=== PATIENT | female | born 1990 | race Hispanic/Latino ===

== ENCOUNTER 2017-02-05 11:04 | Inpatient (IN) | payer BC, OTHER ==
[2017-02-05 11:17] VITALS: BMI 31.0
[2017-02-05] MEDS ORDERED: Sodium Chloride 0.9% 1,000 ML IV STA ×2 (12:15→14:11)
--- NOTE | 2017-02-05 12:25 | ED PDOC ---
HPI: Skin/Bite Injury Time Seen by Provider: 02/05/17 12:05 Chief Complaint (Nursing): Abnormal Skin Integrity Chief Complaint (Provider): skin infection History Per: Patient History/Exam Limitations: no limitations Onset/Duration Of Symptoms: Days (1x week) Current Symptoms Are (Timing): Still Present Location Of Injury: Anterior: Abdomen (mid abdominal area, bug bite) Quality Of Symptoms: Painful Severity: Moderate Additional Complaint(s): 26 year old female with no pertinent medical history presents to the ED with complaints of infection to skin of mid abdominal area. She reports that she was bit by an insect 1 week ago and it got infected. Patient was seen by PMD at [place] and was given bactrim and keflex which has taken for about 1 week but infection has worsened, prompting ED visit toda. She has also been taking tramadol that was prescribed for back pain with no relief. She reports having significant pain to the area and denies having any draining, nausea, vomiting, or fevers. She rates pain as 8/10. PMD: [facility] Past Medical History Reviewed: Historical Data, Nursing Documentation, Vital Signs Vital Signs: Last Vital Signs Temp 98.7 F 02/05/17 17:34 Pulse 90 02/05/17 17:34 Resp 18 02/05/17 17:34 BP 130/80 02/05/17 17:34 Pulse Ox 98 02/05/17 17:27 - Medical History PMH: Anxiety - Surgical History Other surgeries: left ankle surgery 7x years ago. - Family History Family History: States: No Known Family Hx - Living Arrangements Living Arrangements: With Family - Social History Current smoker - smoking cessation education provided: Yes (E cigarette) Alcohol: Social Drugs: Cannabis - Home Medications Home Medications: Ambulatory Orders Medication Instructions Recorded Cephalexin [cephalexin] 500 mg PO TID 02/05/17 Venlafaxine [Effexor XR] 150 mg PO DAILY 02/05/17 - Allergies Allergies/Adverse Reactions: Allergies Allergy/AdvReac Type Severity Reaction Status Date / Time No Known Allergies Allergy Unverified 02/05/17 11:50 Review of Systems ROS Statement: Except As Marked, All Systems Reviewed And Found Negative Constitutional: Negative for: Fever, Chills Gastrointestinal: Positive for: Abdominal Pain (mid abdominal pain due to infection). Negative for: Nausea, Vomiting Skin: Positive for: Other (skin infection mid abdominal area) Physical Exam - Reviewed Nursing Documentation Reviewed: Yes Vital Signs Reviewed: Yes - Physical Exam Appears: Positive for: Well, Non-toxic, In Acute Distress Head Exam: Positive for: ATRAUMATIC, NORMAL INSPECTION, NORMOCEPHALIC Skin: Positive for: Normal Color, Warm, Dry Cardiovascular/Chest: Positive for: Regular Rate, Rhythm Respiratory: Positive for: Normal Breath Sounds. Negative for: Respiratory Distress Gastrointestinal/Abdominal: Positive for: Soft, Other (diffuse cellulitis to mid abdominal area with 2 hyperpigmented central pustular lesions. Significant tenderness to palpation, minimal drainage and bleeding) Extremity: Positive for: Normal ROM. Negative for: Pedal Edema Neurologic/Psych: Positive for: Alert, Oriented (3x) - Laboratory Results Result Diagrams: 02/05/17 12:50 02/05/17 12:50 Urine POC: Negative - ECG O2 Sat by Pulse Oximetry: 96 (RA) Pulse Ox Interpretation: Normal - Other Rad CT abd and pelvis with IV contrast X-Ray: Read By Radiologist X-Ray Interpretation: see below Medical Decision Making Medical Decision Makin:05 Initial impression: 26 year old female with cellulitis. Initial plan: * VBG * CT abd and pelvis with IV contrast only * CMP * CBC * morphine 4mg IVP * IV NS 1,000ml IV 1,000mls/hr * Vancomycin inj 1gm sodium chloride .9% 250ml IVPB * zofran inj 4mg IV * blood culture * reevaluation 14:10 pm: patient states there is no improvement in pain after morphine dose was given, Toradol 30 IV ordered. 15:42 CT: IMPRESSION: Cellulitis/panniculitis. This appears to be uncomplicated without evidence of drainable component, sinus tract or fistulous communication with the peritoneal cavity. Additional benign and/or incidental findings described above. 15:55: PMD is chula John d/w Arnel Moore who will admit patient. Patient is aware of and agrees with admission. As per VINITA Moore, Dr. Lugo's group contacted for surgery consult. I spoke with Dr. Estevez who states to have surgical instrument repair specialist see patient. Resident was instructed to call Dr. Estevez after he sees patient. Scribe Attestation: Documented by Marycarmen Villarreal, acting as a scribe for Delmy Gardner PA-C. Provider Scribe Attestation: All medical record entries made by the Scribe were at my direction and personally dictated by me. I have reviewed the chart and agree that the record accurately reflects my personal performance of the history, physical exam, medical decision making, and the department course for this patient. I have also personally directed, reviewed, and agree with the discharge instructions and disposition. Disposition - Clinical Impression Clinical Impression: Abdominal wall cellulitis - Patient ED Disposition Is Patient to be Admitted: Yes - Disposition Disposition Time: 16:10 Condition: FAIR - Pt Status Changed To: Hospital Disposition Of: Observation - POA Present On Arrival: None Results - Lab Results Lab Results: 02/05/17 02/05/17 02/05/17 12:50 12:50 12:49 WBC 10.1 RBC 4.48 Hgb 13.5 Hct 40.6 MCV 90.7 MCH 30.0 MCHC 33.1 RDW 13.4 Plt Count 286 MPV 8.8 Neut % (Auto) 70.1 Lymph % (Auto) 21.9 [place] % (Auto) 6.4 Eos % (Auto) 1.2 Baso % (Auto) 0.4 Neut # 7.1 H Lymph # 2.2 [place] # 0.6 Eos # 0.1 Baso # 0.0 pO2 20 L VBG pH 7.32 VBG pCO2 55 VBG HCO3 23.9 VBG Total CO2 30.0 H VBG O2 Sat (Calc) 36.8 L VBG Base Excess 1.1 VBG Potassium 4.4 A-a O2 Difference 61.0 Sodium 141 136.0 Chloride 105 105.0 Glucose 79 Lactate 1.1 FiO2 21.0 Crit Value Called To Patric nieves Crit Value Called By 15 Crit Value Read Back Y Blood Gas Notified Time 1300 Potassium 4.3 Carbon Dioxide 27 Anion Gap 12 BUN 13 Creatinine 0.7 Est GFR ( Amer) > 60 Est GFR (Non-Af Amer) > 60 Random Glucose 81 Calcium 9.4 Total Bilirubin 0.3 AST 27 ALT 32 Alkaline Phosphatase 68 Total Protein 7.4 Albumin 4.2 Globulin 3.2 Albumin/Globulin Ratio 1.3 Venous Blood Potassium 4.4
[2017-02-05 12:53] LABS: VENOUS BLOOD GAS BASE EXCESS 1.1 mmol/L (0.0-2.0); VENOUS BLOOD GAS PCO2 55 mmHg (40-60); VENOUS BLOOD GAS PO2 20 mm/Hg (30-55); VENOUS BLOOD PH 7.32 (7.32-7.43)
[2017-02-05 13:13] LABS: BASO % 0.4 % (0.0-2.0); EOS # 0.1 K/uL (0.0-0.7); EOS % 1.2 % (0.0-4.0); HEMOGLOBIN 13.5 g/dL (12.0-16.0); LYMPH # 2.2 K/uL (1.0-4.3); LYMPH % 21.9 % (20.0-40.0); MEAN CELL VOLUME 90.7 fl (81.0-99.0); MEAN CORPUSCULAR HGB CONC 33.1 g/dL (33.0-37.0); MEAN PLATELET VOLUME 8.8 fl (7.2-11.7); MONO # 0.6 K/uL (0.0-0.8); MONO % 6.4 % (0.0-10.0); NEUT # 7.1 K/uL (1.8-7.0); NEUT % 70.1 % (50.0-75.0); RBC 4.48 Mil/uL (3.80-5.20); RED CELL DISTRIBUTION WIDTH 13.4 % (11.5-14.5); WHITE BLOOD COUNT 10.1 K/uL (4.8-10.8)
[2017-02-05] MEDS ORDERED: Vancomycin 1 g Inj ONE (13:15)
[2017-02-05] MEDS ORDERED: Piperacillin/Tazobact 3.375 gm Inj IVPB ONE (13:23)
[2017-02-05 13:25] LABS: ALB/GLOB RATIO 1.3 (1.0-2.1); ALBUMIN 4.2 g/dL (3.5-5.0); ALT/SGPT 32 U/L (9-52); AST/SGOT 27 U/L (14-36); BLOOD UREA NITROGEN 13 mg/dl (7-17); CALCIUM 9.4 mg/dL (8.4-10.2); GFR AFRICAN-AMERICAN > 60; GFR NON-AFRICAN AMERICAN > 60
[2017-02-05] MEDS ORDERED: Piperacillin/Tazobact 3.375 GM in Sodium Chloride 0.9% 100 ML IVPB STA (13:26)
[2017-02-05] MEDS ORDERED: Sodium Chloride 0.9% 50 ML IV ONE (14:57)
[2017-02-05] MEDS ORDERED: Iohexol 300 100 ML IJ ONE (14:57)
--- NOTE | 2017-02-05 15:44 | CT ---
PROCEDURE: CT Abdomen and Pelvis with contrast HISTORY: assess abdominal wall abscess COMPARISON: None. TECHNIQUE: Contrast dose: 95 cc Omnipaque 300 Radiation dose: Total exam DLP = 1083.69 mGy-cm. This CT exam was performed using one or more of the following dose reduction techniques: Automated exposure control, adjustment of the mA and/or kV according to patient size, and/or use of iterative reconstruction technique. FINDINGS: LOWER THORAX: Unremarkable. LIVER: Sub cm cyst dome of the liver right hepatic lobe. Hepatic steatosis. No focal masses. No intrahepatic bile duct dilatation or perihepatic ascites. GALLBLADDER AND BILE DUCTS: Unremarkable. PANCREAS: Unremarkable. No gross lesion or ductal dilatation. SPLEEN: Unremarkable. ADRENALS: Unremarkable. No mass. KIDNEYS AND URETERS: Unremarkable. No hydronephrosis. No solid mass. VASCULATURE: Unremarkable. No aortic aneurysm. BOWEL: Unremarkable. No obstruction. No gross mural thickening. APPENDIX: Normal appendix. PERITONEUM: Unremarkable. No free fluid. No free air. LYMPH NODES: Unremarkable. No enlarged lymph nodes. BLADDER: Unremarkable. REPRODUCTIVE: Ninety UD identified in what appears to be satisfactory position. BONES: No acute fracture. OTHER FINDINGS: Evidence of lower abdominal and pelvic wall cellulitis/ radiculitis. No drainable collection. No sinus tract or fistulous communication with the peritoneal cavity. IMPRESSION: Cellulitis/panniculitis. This appears to be uncomplicated without evidence of drainable component, sinus tract or fistulous communication with the peritoneal cavity. Additional benign and/or incidental findings described above.
[2017-02-05] MEDS ORDERED: Oxycodone/Acetaminophen 5/325 mg Tab PO PRN (15:53)
[2017-02-05] MEDS ORDERED: Piperacillin/Tazobact 3.375 GM in Sodium Chloride 0.9% 100 ML IVPB SCH ×2 (16:00→20:00)
--- NOTE | 2017-02-05 18:33 | CP.PCM.CON ---
<Taras Dumont - Last Filed: 02/05/17 18:26> History of Present Illness - History of Present Illness History of Present Illness: General Sx: Dr Dominguez Re: Abd wall lesion Pt is a 26F with no significant PMH who presents with 1 week history of progressively worsening abdominal wall cellulitis. Pt states she first noticed the lesion last thursday (6 days prior) as a small red inflammed pimple in the suprapubic area. It progressively worsened within the first 24 hours and pt went to PMD who put her on Bactrim and Keflex. Pt took abx for 5 days and lesion continued to worsen, now with black center and surrounding erythema and inflammation. Pt denies any fever, chills, nausea or vomiting. Pain is limited to the visibly affected area. Review of Systems - Review of Systems All systems: reviewed and no additional remarkable complaints except (as per hpi ) Past Patient History - Past Social History Alcohol: Social Drugs: Cannabis - CARDIAC Hx Cardiac Disorders: No - PULMONARY Hx Respiratory Disorders: No - NEUROLOGICAL Hx Neurological Disorder: No - ENDOCRINE/METABOLIC Hx Endocrine Disorders: No - GASTROINTESTINAL Hx Gastrointestinal Disorders: No - GENITOURINARY/GYNECOLOGICAL Hx Genitourinary Disorders: No - PSYCHIATRIC Hx Anxiety: Yes - SURGICAL HISTORY Other/Comment: Left ankle surgery - ANESTHESIA Hx Anesthesia: Yes Meds Allergies/Adverse Reactions: Allergies Allergy/AdvReac Type Severity Reaction Status Date / Time No Known Allergies Allergy Unverified 02/05/17 11:50 - Medications Medications: Current Medications Sodium Chloride (Sodium Chloride 0.9%) 1,000 mls @ 125 mls/hr IV .Q8H STA Stop: 02/05/17 22:10 Last Admin: 02/05/17 14:15 Dose: 125 mls/hr Vancomycin HCl 1 gm/ Sodium (Chloride) 250 mls @ 166.667 mls/hr IVPB Q12 [facility] Piperacillin Sod/Tazobactam (Sod 3.375 gm/ Sodium Chloride) 100 mls @ 100 mls/ hr IVPB Q6 [facility]THA Ketorolac Tromethamine (Toradol) 30 mg IVP Q6 PRN PRN Reason: pain 2-5 Oxycodone/Acetaminophen (Percocet 5/325 Mg Tab) 1 tab PO Q4 PRN PRN Reason: pain 6-10 Stop: 02/08/17 15:54 Venlafaxine HCl (Effexor Xr) 150 mg PO DAILY [facility] Physical Exam - Constitutional Appears: Non-toxic, No Acute Distress - Head Exam Head Exam: NORMOCEPHALIC - Respiratory Exam Respiratory Exam: absent: Accessory Muscle Use, Respiratory Distress - Cardiovascular Exam Cardiovascular Exam: REGULAR RHYTHM - GI/Abdominal Exam GI & Abdominal Exam: Guarding, Soft, Tenderness (at area of cellulitis). absent : Distended, Firm, Hernia, Mass, Rebound Additional comments: 3x3 and 2x3 area of necrotic ulceration with 8x12 cm surrounding erythema, extremely TTP - Extremities Exam Extremities exam: Negative for: pedal edema - Neurological Exam Neurological exam: Alert, Oriented x3 - Psychiatric Exam Psychiatric exam: Normal Affect, Normal Mood Results - Vital Signs Recent Vital Signs: Last Vital Signs Temp 98.7 F 02/05/17 17:34 Pulse 90 02/05/17 17:34 Resp 18 02/05/17 17:34 BP 130/80 02/05/17 17:34 Pulse Ox 96 02/05/17 17:41 - Labs Result Diagrams: 02/05/17 12:50 02/05/17 12:50 Assessment & Plan - Assessment and Plan (Free Text) Assessment: 26F with abdominal wall cellulitis; necrotic base Plan: NPO @ [place] IV Abx Fluids Possible OR tomorrow pending attending eval d/w Dr Estevez/Alberto Dumont, PGY2 - Date & Time Date: 02/05/17 Time: 18:47 <Ney Estevez - Last Filed: 02/06/17 10:14> History of Present Illness - History of Present Illness History of Present Illness: Patient was seen and examined at the bedside. Agree with resident's note above. Meds - Medications Medications: Current Medications Hydromorphone HCl (Dilaudid) 1 mg IVP Q3 PRN PRN Reason: Pain, moderate (4-7) Last Admin: 02/06/17 07:49 Dose: 1 mg Vancomycin HCl 1 gm/ Sodium (Chloride) 250 mls @ 166.667 mls/hr IVPB Q12 [facility] Last Admin: 02/06/17 08:43 Dose: 166.667 mls/hr Sodium Chloride (Sodium Chloride 0.9%) 1,000 mls @ 125 mls/hr IV .Q8H [facility]A Stop: 02/06/17 18:49 Last Admin: 02/06/17 04:38 Dose: Not Given Piperacillin Sod/Tazobactam (Sod 3.375 gm/ Sodium Chloride) 100 mls @ 100 mls/ hr IVPB 0500,1100,1700,2300 [facility] Last Admin: 02/06/17 04:18 Dose: 100 mls/hr Venlafaxine HCl (Effexor Xr) 150 mg PO DAILY [facility] Last Admin: 02/06/17 08:44 Dose: Not Given Results - Vital Signs Recent Vital Signs: Last Vital Signs Temp 97.8 F 02/06/17 08:00 Pulse 60 02/06/17 08:00 Resp 18 02/06/17 08:00 BP 119/80 02/06/17 08:00 Pulse Ox 98 02/06/17 08:00 - Labs Result Diagrams: 02/06/17 05:20 02/06/17 05:20 Labs: Laboratory Results - last 24 hr 02/06/17 02/06/17 02/06/17 05:20 05:20 05:20 WBC 8.8 RBC 4.04 Hgb 12.2 Hct 36.4 MCV 90.2 MCH 30.3 MCHC 33.6 RDW 13.3 Plt Count 286 MPV 9.2 Neut % (Auto) 61.5 Lymph % (Auto) 30.3 [place] % (Auto) 6.5 Eos % (Auto) 1.3 Baso % (Auto) 0.4 Neut # 5.4 Lymph # 2.7 [place] # 0.6 Eos # 0.1 Baso # 0.0 PT 11.3 INR 1.0 APTT 32.9 Sodium 139 Potassium 3.8 Chloride 107 Carbon Dioxide 26 Anion Gap 11 BUN 10 Creatinine 0.7 Est GFR ( Amer) > 60 Est GFR (Non-Af Amer) > 60 Random Glucose 84 Calcium 8.5 Total Bilirubin 0.3 AST 29 ALT 35 Alkaline Phosphatase 56 Total Protein 6.1 L Albumin 3.3 L D Globulin 2.8 Albumin/Globulin Ratio 1.2 - Imaging and Cardiology CT scan - abdomen Status: Image reviewed by me, Report reviewed by me Assessment & Plan - Assessment and Plan (Free Text) Plan: - Keep NPO - IV fluids - Pain control - Continue antibiotics - To OR for debridement
[2017-02-05] MEDS ORDERED: HYDROmorphone 0.5 mg/0.5 ml ISec IVP PRN (18:48)
[2017-02-05] MEDS: Sodium Chloride 0.9% 1,000 ML IV SCH (20:50)
[2017-02-05] MEDS: HYDROmorphone 0.5 mg/0.5 ml ISec IVP PRN (23:46)
[2017-02-05] MEDS: Piperacillin/Tazobact 3.375 GM in Sodium Chloride 0.9% 100 ML IVPB SCH (23:47)
[2017-02-06] MEDS: HYDROmorphone 0.5 mg/0.5 ml ISec IVP PRN ×4 (04:17→22:02)
[2017-02-06] MEDS: Piperacillin/Tazobact 3.375 GM in Sodium Chloride 0.9% 100 ML IVPB SCH ×4 (04:18→22:00)
[2017-02-06] MEDS: Sodium Chloride 0.9% 1,000 ML IV SCH ×2 (04:38→12:48)
[2017-02-06 06:42] LABS: BASO % 0.4 % (0.0-2.0); EOS # 0.1 K/uL (0.0-0.7); EOS % 1.3 % (0.0-4.0); HEMOGLOBIN 12.2 g/dL (12.0-16.0); LYMPH # 2.7 K/uL (1.0-4.3); LYMPH % 30.3 % (20.0-40.0); MEAN CELL VOLUME 90.2 fl (81.0-99.0); MEAN CORPUSCULAR HEMOGLOBIN 30.3 pg (27.0-31.0); MEAN CORPUSCULAR HGB CONC 33.6 g/dL (33.0-37.0); MEAN PLATELET VOLUME 9.2 fl (7.2-11.7); MONO # 0.6 K/uL (0.0-0.8); MONO % 6.5 % (0.0-10.0); NEUT # 5.4 K/uL (1.8-7.0); NEUT % 61.5 % (50.0-75.0); NRBC % 0.1 % (0.0-0.0); RBC 4.04 Mil/uL (3.80-5.20); RED CELL DISTRIBUTION WIDTH 13.3 % (11.5-14.5); WHITE BLOOD COUNT 8.8 K/uL (4.8-10.8)
[2017-02-06 06:47] LABS: ALB/GLOB RATIO 1.2 (1.0-2.1); ALBUMIN 3.3 g/dL (3.5-5.0); ALT/SGPT 35 U/L (9-52); AST/SGOT 29 U/L (14-36); BLOOD UREA NITROGEN 10 mg/dl (7-17); CALCIUM 8.5 mg/dL (8.4-10.2); GFR AFRICAN-AMERICAN > 60; GFR NON-AFRICAN AMERICAN > 60
[2017-02-06 06:54] LABS: PARTIAL THROMBOPLASTIN TIME 32.9 Seconds (25.6-37.1); PROTHROMBIN TIME 11.3 Seconds (9.8-13.1)
--- NOTE | 2017-02-06 07:21 | CP.PCM.HP ---
History of Present Illness - History of Present Illness History of Present Illness: pt admitted for failure of outpt therapy of abd celluitis 2ndary to ?? insect bite to abd. pt tired/failed bactrim/keflex outpt. pt has large approx 4"x3" area or erythema w/ central nnecrosis to lower r abd. imaging and bw noted. ekg nsr w/o st/t wave abnormalities/ectopy. Present on Admission - Present on Admission Any Indicators Present on Admission: No Review of Systems - Integumentary Integumentary: As Per HPI, Erythema Past Patient History - Past Medical History & Family History Past Medical History?: No - Past Social History Alcohol: Social Drugs: Cannabis - CARDIAC Hx Cardiac Disorders: No - PULMONARY Hx Respiratory Disorders: No - NEUROLOGICAL Hx Neurological Disorder: No - ENDOCRINE/METABOLIC Hx Endocrine Disorders: No - MUSCULOSKELETAL/RHEUMATOLOGICAL Hx Falls: No - GASTROINTESTINAL Hx Gastrointestinal Disorders: No - GENITOURINARY/GYNECOLOGICAL Hx Genitourinary Disorders: No - PSYCHIATRIC Hx Anxiety: Yes - SURGICAL HISTORY Other/Comment: Left ankle surgery - ANESTHESIA Hx Anesthesia: Yes Meds Allergies/Adverse Reactions: Allergies Allergy/AdvReac Type Severity Reaction Status Date / Time No Known Allergies Allergy Unverified 02/05/17 11:50 Physical Exam - Constitutional Appears: Well, Non-toxic, No Acute Distress - Head Exam Head Exam: ATRAUMATIC, NORMAL INSPECTION, NORMOCEPHALIC - Eye Exam Eye Exam: EOMI, Normal appearance, PERRL Pupil Exam: NORMAL ACCOMODATION, PERRL - ENT Exam ENT Exam: Mucous Membranes Moist, Normal Exam - Neck Exam Neck exam: Positive for: Normal Inspection - Respiratory Exam Respiratory Exam: Clear to Auscultation Bilateral, NORMAL BREATHING PATTERN - Cardiovascular Exam Cardiovascular Exam: REGULAR RHYTHM, RRR, +S1, +S2 - GI/Abdominal Exam GI & Abdominal Exam: Normal Bowel Sounds, Soft. absent: Tenderness - Extremities Exam Extremities exam: Positive for: full ROM, normal capillary refill, normal inspection, pedal pulses present - Back Exam Back exam: NORMAL INSPECTION - Neurological Exam Neurological exam: Alert, CN II-XII Intact, Normal Gait, Oriented x3, Reflexes Normal - Psychiatric Exam Psychiatric exam: Normal Affect, Normal Mood - Skin Skin Exam: Dry, Erythema, Intact, Normal Color, Warm Additional comments: as note din hpi Results - Vital Signs Recent Vital Signs: Last Vital Signs Temp 97.6 F 02/06/17 00:42 Pulse 66 02/06/17 00:42 Resp 19 02/06/17 00:42 BP 118/65 02/06/17 00:42 Pulse Ox 96 02/06/17 00:42 - Labs Result Diagrams: 02/06/17 05:20 02/06/17 05:20 Labs: Laboratory Results - last 24 hr 02/06/17 02/06/17 02/06/17 05:20 05:20 05:20 WBC 8.8 RBC 4.04 Hgb 12.2 Hct 36.4 MCV 90.2 MCH 30.3 MCHC 33.6 RDW 13.3 Plt Count 286 MPV 9.2 Neut % (Auto) 61.5 Lymph % (Auto) 30.3 [place] % (Auto) 6.5 Eos % (Auto) 1.3 Baso % (Auto) 0.4 Neut # 5.4 Lymph # 2.7 [place] # 0.6 Eos # 0.1 Baso # 0.0 PT 11.3 INR 1.0 APTT 32.9 Sodium 139 Potassium 3.8 Chloride 107 Carbon Dioxide 26 Anion Gap 11 BUN 10 Creatinine 0.7 Est GFR ( Amer) > 60 Est GFR (Non-Af Amer) > 60 Random Glucose 84 Calcium 8.5 Total Bilirubin 0.3 AST 29 ALT 35 Alkaline Phosphatase 56 Total Protein 6.1 L Albumin 3.3 L D Globulin 2.8 Albumin/Globulin Ratio 1.2 Assessment & Plan (1) DVT prophylaxis Assessment and Plan: sc adnd a e hse ambulation Status: Acute (2) Abdominal wall cellulitis Assessment and Plan: mansoor henson pain control surgery for i/d in or claered for surgery fu c/s Status: Acute Decision To Admit - Pt Status Changed To: Hospital Disposition Of: Inpatient - Admit Certification Admit to Inpatient:: After my assessment, the patient will require hospitalization for at least two midnights. This is because of the severity of symptoms shown, intensity of services needed, and/or the medical risk in this patient being treated as an outpatient. - . Bed Request Type: Med/Surg Admitting Physician: Mehran Philip
[2017-02-06] MEDS: Venlafaxine 150 mg ER Cap PO SCH (08:44)
[2017-02-06] MEDS ORDERED: Propofol 10 mg/ml Inj (20 ML) ONE (10:36)
[2017-02-06] MEDS ORDERED: Succinylcholine 200 mg/10 ml Inj IV ONE (10:37)
[2017-02-06] MEDS ORDERED: Midazolam 2 MG/2 ML VIAL ONE (10:37)
[2017-02-06] MEDS ORDERED: Rocuronium 10 mg/ml (5 ml) ONE (10:38)
[2017-02-06] MEDS: Lactated Ringer's 1,000 ML IV SCH ×2 (11:31→20:15)
[2017-02-06] MEDS ORDERED: HYDROmorphone 0.5 mg/0.5 ml ISec IVP PRN (11:40)
[2017-02-06] MEDS ORDERED: Lactated Ringer's 1,000 ML IV PRN (11:40)
--- NOTE | 2017-02-06 11:58 | PCM.SURG1 ---
Surgeon's Initial Post Op Note - Surgeon's Notes Surgeon: Dr. Estevez Fleshing Machine Operator: none Type of Anesthesia: General Endo Anesthesia Administered By: Sandrine Pre-Operative Diagnosis: Abdominal wall cellulitis Operative Findings: see operative report Post-Operative Diagnosis: same Operation Performed: Debridement of abdominal wall Specimen/Specimens Removed: 10cc purulent fluid Estimated Blood Loss: EBL {In ML}: 10 Blood Products Given: N/A Drains Used: No Drains Post-Op Condition: Good Date of Surgery/Procedure: 02/06/17 Time of Surgery/Procedure: 10:00
[2017-02-06] MEDS ORDERED: Oxycodone/Acetaminophen 5/325 mg Tab PO PRN (11:59)
--- NOTE | 2017-02-06 17:13 | CARD ---
APPROVED REPORT EKG Measurement Heart [id number] <Conclusion> Normal sinus rhythm Normal ECG
[2017-02-07] MEDS: HYDROmorphone 0.5 mg/0.5 ml ISec IVP PRN ×4 (01:00→11:04)
[2017-02-07] MEDS: Lactated Ringer's 1,000 ML IV SCH ×3 (04:02→20:35)
[2017-02-07] MEDS: Piperacillin/Tazobact 3.375 GM in Sodium Chloride 0.9% 100 ML IVPB SCH ×3 (04:02→22:56)
[2017-02-07 07:28] LABS: BASO % 0.4 % (0.0-2.0); EOS # 0.1 K/uL (0.0-0.7); EOS % 1.2 % (0.0-4.0); HEMOGLOBIN 12.3 g/dL (12.0-16.0); LYMPH # 2.3 K/uL (1.0-4.3); MEAN CELL VOLUME 89.4 fl (81.0-99.0); MEAN CORPUSCULAR HEMOGLOBIN 30.1 pg (27.0-31.0); MEAN CORPUSCULAR HGB CONC 33.7 g/dL (33.0-37.0); MEAN PLATELET VOLUME 8.5 fl (7.2-11.7); MONO # 0.4 K/uL (0.0-0.8); NEUT # 4.1 K/uL (1.8-7.0); NEUT % 59.4 % (50.0-75.0); NRBC % 0.1 % (0.0-0.0); RBC 4.07 Mil/uL (3.80-5.20); RED CELL DISTRIBUTION WIDTH 13.1 % (11.5-14.5); WHITE BLOOD COUNT 6.9 K/uL (4.8-10.8)
--- NOTE | 2017-02-07 08:32 | CP.PCM.PN ---
Subjective - Date & Time of Evaluation Date of Evaluation: 02/07/17 Time of Evaluation: 08:30 - Subjective Subjective: General Surgery: Dr Estevez Pt S&E. NAEO. POD#1 s/p I&D of abdominal wall abscess. Pt doing well, tolerating diet, OOB and ambulating. Pain significantly improved. Denies f/c, sob, chest pain, n/v. Objective - Vital Signs/Intake and Output Vital Signs (last 24 hours): Temp Pulse Resp BP Pulse Ox 98 F 68 18 107/70 98 02/07/17 04:18 02/07/17 04:18 02/07/17 04:18 02/07/17 04:18 02/07/17 04:18 - Medications Medications: Current Medications Hydromorphone HCl (Dilaudid) 1 mg IVP Q3 PRN PRN Reason: Pain, moderate (4-7) Last Admin: 02/07/17 07:51 Dose: 1 mg Vancomycin HCl 1 gm/ Sodium (Chloride) 250 mls @ 166.667 mls/hr IVPB Q12 [facility] Last Admin: 02/06/17 20:23 Dose: 166.667 mls/hr Piperacillin Sod/Tazobactam (Sod 3.375 gm/ Sodium Chloride) 100 mls @ 100 mls/ hr IVPB 0500,1100,1700,2300 [facility] Last Admin: 02/07/17 04:02 Dose: 100 mls/hr Lactated Ringer's (Lactated Ringer's) 1,000 mls @ 125 mls/hr IV .Q8H [facility] Last Admin: 02/07/17 04:02 Dose: 125 mls/hr Lactated Ringer's (Lactated Ringer's) 1,000 mls @ 100 mls/hr IV .Q10H PRN PRN Reason: Hypotension Ondansetron HCl (Zofran Inj) 4 mg IVP Q6 PRN PRN Reason: Nausea/Vomiting Last Admin: 02/06/17 20:20 Dose: 4 mg Oxycodone/Acetaminophen (Percocet 5/325 Mg Tab) 2 tab PO Q4 PRN PRN Reason: Pain, moderate (4-7) Stop: 02/09/17 12:00 Last Admin: 02/06/17 12:45 Dose: 2 tab Venlafaxine HCl (Effexor Xr) 150 mg PO DAILY [facility] Last Admin: 02/06/17 08:44 Dose: Not Given - Labs Labs: 02/07/17 05:30 PT 11.3 Seconds (9.8-13.1) 02/06/17 05:20 INR 1.0 (0.9-1.2) 02/06/17 05:20 APTT 32.9 Seconds (25.6-37.1) 02/06/17 05:20 - Constitutional Appears: Non-toxic, No Acute Distress - Head Exam Head Exam: NORMAL INSPECTION - Respiratory Exam Respiratory Exam: NORMAL BREATHING PATTERN. absent: Accessory Muscle Use, Respiratory Distress - GI/Abdominal Exam GI & Abdominal Exam: Soft, Tenderness (around incision sites). absent: Distended, Firm - Neurological Exam Neurological Exam: Alert, Awake, Oriented x3 - Psychiatric Exam Psychiatric exam: Normal Affect, Normal Mood - Skin Additional comments: 1x 2 cm and 1x1 cm wounds at site of debridement, ~0.5cm deep, no purulence noted, significant reduction in surrounding erythema, good granulation tissue. packed with iodoform. Packing changed at bedside. Assessment and Plan - Assessment and Plan (Free Text) Assessment: 26F s/p I&D of abdominal wall abscess Plan: Daily packing changes Cont IV abx pt will likely remain through the weekend pending wound cultures D/C plan will be to follow up daily at wound care center for packing changes will d/w Dr Herb Dumont, PGY2
--- NOTE | 2017-02-07 10:22 | CP.PCM.PN ---
Subjective - Date & Time of Evaluation Date of Evaluation: 02/07/17 Time of Evaluation: 10:20 - Subjective Subjective: pt is pod 1 i/d suspected spider bite, no f/c, n/v/d. pt w/ large amt of pain. still w/ erythema around site. wound dsg c/d/i. changed by nursing surgical services director. Objective - Vital Signs/Intake and Output Vital Signs (last 24 hours): Temp Pulse Resp BP Pulse Ox 97.9 F 68 18 133/60 97 02/07/17 08:57 02/07/17 08:57 02/07/17 08:57 02/07/17 08:57 02/07/17 08:57 - Medications Medications: Current Medications Hydromorphone HCl (Dilaudid) 1 mg IVP Q3 PRN PRN Reason: Pain, moderate (4-7) Last Admin: 02/07/17 07:51 Dose: 1 mg Vancomycin HCl 1 gm/ Sodium (Chloride) 250 mls @ 166.667 mls/hr IVPB Q12 [facility] Last Admin: 02/07/17 08:47 Dose: 166.667 mls/hr Piperacillin Sod/Tazobactam (Sod 3.375 gm/ Sodium Chloride) 100 mls @ 100 mls/ hr IVPB 0500,1100,1700,2300 [facility] Last Admin: 02/07/17 04:02 Dose: 100 mls/hr Lactated Ringer's (Lactated Ringer's) 1,000 mls @ 125 mls/hr IV .Q8H [facility] Last Admin: 02/07/17 04:02 Dose: 125 mls/hr Lactated Ringer's (Lactated Ringer's) 1,000 mls @ 100 mls/hr IV .Q10H PRN PRN Reason: Hypotension Ondansetron HCl (Zofran Inj) 4 mg IVP Q6 PRN PRN Reason: Nausea/Vomiting Last Admin: 02/06/17 20:20 Dose: 4 mg Oxycodone/Acetaminophen (Percocet 5/325 Mg Tab) 2 tab PO Q4 PRN PRN Reason: Pain, moderate (4-7) Stop: 02/09/17 12:00 Last Admin: 02/06/17 12:45 Dose: 2 tab Venlafaxine HCl (Effexor Xr) 150 mg PO DAILY [facility] Last Admin: 02/06/17 08:44 Dose: Not Given - Labs Labs: 02/07/17 05:30 PT 11.3 Seconds (9.8-13.1) 02/06/17 05:20 INR 1.0 (0.9-1.2) 02/06/17 05:20 APTT 32.9 Seconds (25.6-37.1) 02/06/17 05:20 - Constitutional Appears: Well, Non-toxic, No Acute Distress - Head Exam Head Exam: ATRAUMATIC, NORMAL INSPECTION, NORMOCEPHALIC - Eye Exam Eye Exam: EOMI, Normal appearance, PERRL Pupil Exam: NORMAL ACCOMODATION, PERRL - ENT Exam ENT Exam: Mucous Membranes Moist, Normal Exam - Neck Exam Neck Exam: Full ROM, Normal Inspection. absent: Lymphadenopathy - Respiratory Exam Respiratory Exam: Clear to Ausculation Bilateral, NORMAL BREATHING PATTERN - Cardiovascular Exam Cardiovascular Exam: REGULAR RHYTHM, RRR, +S1, +S2. absent: Murmur - GI/Abdominal Exam GI & Abdominal Exam: Soft, Normal Bowel Sounds. absent: Tenderness - Extremities Exam Extremities Exam: Full ROM, Normal Capillary Refill, Normal Inspection. absent : Joint Swelling, Pedal Edema - Back Exam Back Exam: NORMAL INSPECTION - Neurological Exam Neurological Exam: Alert, Awake, CN II-XII Intact, Normal Gait, Oriented x3 - Psychiatric Exam Psychiatric exam: Normal Affect, Normal Mood - Skin Skin Exam: Dry, Intact, Normal Color, Warm Additional comments: abd dsg c/d/i wound w/ surroundign erythema. wound debrided no longer w/ necrotic center Assessment and Plan (1) DVT prophylaxis Status: Acute (2) Abdominal wall cellulitis Status: Acute - Assessment and Plan (Free Text) Assessment: (1) DVT prophylaxis Assessment and Plan: sc adnd a e hse ambulation Status: Acute (2) Abdominal wall cellulitis Assessment and Plan: mansoor henson pain control surgery for i/d in or pod 1 case d/c w/rosamaria graham and dayna keith c/s Status: Acute
[2017-02-07] MEDS: Venlafaxine 150 mg ER Cap PO SCH ×2 (11:05→11:06)
[2017-02-07] MEDS ORDERED: HYDROmorphone 0.5 mg/0.5 ml ISec ONE (15:11)
[2017-02-07] MEDS ORDERED: Benzocaine/Menthol (Cepacol) Lozenge PO PRN (20:37)
[2017-02-08 00:39] VITALS: RESP 20
[2017-02-08] MEDS: Lactated Ringer's 1,000 ML IV SCH ×2 (03:52→12:55)
[2017-02-08] MEDS: Piperacillin/Tazobact 3.375 GM in Sodium Chloride 0.9% 100 ML IVPB SCH ×2 (04:28→11:58)
[2017-02-08 08:22] VITALS: BP 119/79; PULSE 67; TEMP 98.9; O2SAT 100
--- NOTE | 2017-02-08 08:37 | CP.PCM.PN ---
Subjective - Date & Time of Evaluation Date of Evaluation: 02/08/17 Time of Evaluation: 06:19 - Subjective Subjective: SURGERY NOTE FOR DR. WOOD 26F seen and examined at bedside. NAEON. Patient resting comfortably. Pain minimal. Objective - Vital Signs/Intake and Output Vital Signs (last 24 hours): Temp Pulse Resp BP Pulse Ox 98.9 F 67 20 119/79 100 02/08/17 08:21 02/08/17 08:21 02/08/17 08:21 02/08/17 08:21 02/08/17 08:21 - Medications Medications: Current Medications Benzocaine/Menthol (Cepacol Sore Throat) 1 ese PO Q3 PRN PRN Reason: Sore Throat Last Admin: 02/08/17 04:29 Dose: 1 ese Docusate Sodium (Colace) 100 mg PO BID [facility] Last Admin: 02/07/17 22:20 Dose: Not Given Hydromorphone HCl (Dilaudid) 2 mg IVP Q3 PRN PRN Reason: Pain, severe (8-10) Vancomycin HCl 1 gm/ Sodium (Chloride) 250 mls @ 166.667 mls/hr IVPB Q12 [facility] Last Admin: 02/07/17 20:57 Dose: 166.667 mls/hr Piperacillin Sod/Tazobactam (Sod 3.375 gm/ Sodium Chloride) 100 mls @ 100 mls/ hr IVPB 0500,1100,1700,2300 [facility] Last Admin: 02/08/17 04:28 Dose: 100 mls/hr Lactated Ringer's (Lactated Ringer's) 1,000 mls @ 125 mls/hr IV .Q8H [facility] Last Admin: 02/08/17 03:52 Dose: Not Given Lactated Ringer's (Lactated Ringer's) 1,000 mls @ 100 mls/hr IV .Q10H PRN PRN Reason: Hypotension Ketorolac Tromethamine (Toradol) 30 mg IVP Q6 [facility] Last Admin: 02/08/17 04:29 Dose: 30 mg Ondansetron HCl (Zofran Inj) 4 mg IVP Q6 PRN PRN Reason: Nausea/Vomiting Last Admin: 02/06/17 20:20 Dose: 4 mg Oxycodone/Acetaminophen (Percocet 5/325 Mg Tab) 2 tab PO Q4 PRN PRN Reason: Pain, moderate (4-7) Stop: 02/09/17 12:00 Last Admin: 02/06/17 12:45 Dose: 2 tab Pregabalin (Lyrica) 75 mg PO BID [facility] Venlafaxine HCl (Effexor Xr) 150 mg PO DAILY [facility] Last Admin: 02/07/17 11:06 Dose: Not Given - Labs Labs: 02/07/17 05:30 PT 11.3 Seconds (9.8-13.1) 02/06/17 05:20 INR 1.0 (0.9-1.2) 02/06/17 05:20 APTT 32.9 Seconds (25.6-37.1) 02/06/17 05:20 - Constitutional Appears: Non-toxic, No Acute Distress - Respiratory Exam Respiratory Exam: Clear to Ausculation Bilateral, NORMAL BREATHING PATTERN - Cardiovascular Exam Cardiovascular Exam: REGULAR RHYTHM, +S1, +S2 - GI/Abdominal Exam GI & Abdominal Exam: Soft, Tenderness (mild tenderness). absent: Distended, Firm, Guarding, Rigid Additional comments: dressing on site of surgery is clean dry intact - Neurological Exam Neurological Exam: Alert, Awake Assessment and Plan - Assessment and Plan (Free Text) Assessment: 26F s/p I&D of abdominal wall abscess POD2 Plan: Daily packing changes Cont IV abx F/u cultures D/C plan will be to follow up daily at wound care center for packing changes Further recs discuss with Dr. Parish Bishop, PGY1
[2017-02-08 08:53] LABS: BASO % 0.5 % (0.0-2.0); EOS # 0.1 K/uL (0.0-0.7); EOS % 0.8 % (0.0-4.0); HEMOGLOBIN 13.4 g/dL (12.0-16.0); LYMPH # 1.6 K/uL (1.0-4.3); LYMPH % 23.2 % (20.0-40.0); MEAN CORPUSCULAR HEMOGLOBIN 30.3 pg (27.0-31.0); MEAN CORPUSCULAR HGB CONC 34.4 g/dL (33.0-37.0); MEAN PLATELET VOLUME 8.7 fl (7.2-11.7); MONO # 0.4 K/uL (0.0-0.8); MONO % 5.4 % (0.0-10.0); NEUT # 4.9 K/uL (1.8-7.0); NEUT % 70.1 % (50.0-75.0); NRBC % 0.1 % (0.0-0.0); RBC 4.43 Mil/uL (3.80-5.20); RED CELL DISTRIBUTION WIDTH 12.8 % (11.5-14.5)
[2017-02-08] MEDS: Venlafaxine 150 mg ER Cap PO SCH ×2 (09:08→09:16)
--- NOTE | 2017-02-08 09:35 | CP.PCM.PN ---
Subjective - Date & Time of Evaluation Date of Evaluation: 02/08/17 Time of Evaluation: 09:35 - Subjective Subjective: pt doing well, wound improving, pain well under control. pt asking to go home. bw reviewed. no surrouding erythema on wound. case d/c w/ dr mcintosh. Objective - Vital Signs/Intake and Output Vital Signs (last 24 hours): Temp Pulse Resp BP Pulse Ox 98.9 F 67 20 119/79 100 02/08/17 08:21 02/08/17 08:21 02/08/17 08:21 02/08/17 08:21 02/08/17 08:21 - Medications Medications: Current Medications Benzocaine/Menthol (Cepacol Sore Throat) 1 ese PO Q3 PRN PRN Reason: Sore Throat Last Admin: 02/08/17 04:29 Dose: 1 ese Docusate Sodium (Colace) 100 mg PO BID [facility] Last Admin: 02/08/17 09:08 Dose: Not Given Hydromorphone HCl (Dilaudid) 2 mg IVP Q3 PRN PRN Reason: Pain, severe (8-10) Vancomycin HCl 1 gm/ Sodium (Chloride) 250 mls @ 166.667 mls/hr IVPB Q12 [facility] Last Admin: 02/08/17 09:10 Dose: 166.667 mls/hr Piperacillin Sod/Tazobactam (Sod 3.375 gm/ Sodium Chloride) 100 mls @ 100 mls/ hr IVPB 0500,1100,1700,2300 [facility] Last Admin: 02/08/17 04:28 Dose: 100 mls/hr Lactated Ringer's (Lactated Ringer's) 1,000 mls @ 125 mls/hr IV .Q8H [facility] Last Admin: 02/08/17 03:52 Dose: Not Given Lactated Ringer's (Lactated Ringer's) 1,000 mls @ 100 mls/hr IV .Q10H PRN PRN Reason: Hypotension Ketorolac Tromethamine (Toradol) 30 mg IVP Q6 [facility] Last Admin: 02/08/17 09:09 Dose: 30 mg Ondansetron HCl (Zofran Inj) 4 mg IVP Q6 PRN PRN Reason: Nausea/Vomiting Last Admin: 02/06/17 20:20 Dose: 4 mg Oxycodone/Acetaminophen (Percocet 5/325 Mg Tab) 2 tab PO Q4 PRN PRN Reason: Pain, moderate (4-7) Stop: 02/09/17 12:00 Last Admin: 02/06/17 12:45 Dose: 2 tab Pregabalin (Lyrica) 75 mg PO BID [facility] Last Admin: 02/08/17 09:09 Dose: Not Given Venlafaxine HCl (Effexor Xr) 150 mg PO DAILY [facility] Last Admin: 02/08/17 09:16 Dose: Not Given - Labs Labs: 02/08/17 06:00 PT 11.3 Seconds (9.8-13.1) 02/06/17 05:20 INR 1.0 (0.9-1.2) 02/06/17 05:20 APTT 32.9 Seconds (25.6-37.1) 02/06/17 05:20 - Constitutional Appears: Well, Non-toxic, No Acute Distress - Head Exam Head Exam: ATRAUMATIC, NORMAL INSPECTION, NORMOCEPHALIC - Eye Exam Eye Exam: EOMI, Normal appearance, PERRL Pupil Exam: NORMAL ACCOMODATION, PERRL - ENT Exam ENT Exam: Mucous Membranes Moist, Normal Exam - Neck Exam Neck Exam: Full ROM, Normal Inspection. absent: Lymphadenopathy - Respiratory Exam Respiratory Exam: Clear to Ausculation Bilateral, NORMAL BREATHING PATTERN - Cardiovascular Exam Cardiovascular Exam: REGULAR RHYTHM, RRR, +S1, +S2. absent: Murmur - GI/Abdominal Exam GI & Abdominal Exam: Soft, Normal Bowel Sounds. absent: Tenderness - Extremities Exam Extremities Exam: Full ROM, Normal Capillary Refill, Normal Inspection. absent : Joint Swelling, Pedal Edema - Back Exam Back Exam: NORMAL INSPECTION - Neurological Exam Neurological Exam: Alert, Awake, CN II-XII Intact, Normal Gait, Oriented x3 - Psychiatric Exam Psychiatric exam: Normal Affect, Normal Mood - Skin Skin Exam: Dry, Intact, Normal Color, Warm Assessment and Plan (1) DVT prophylaxis Assessment & Plan: scd adn ae hose, ambulation Status: Acute (2) Abdominal wall cellulitis Assessment & Plan: cont anbx, surgery, apin control ?? dc today Status: Acute
--- NOTE | 2017-02-09 07:34 | CP.PCM.DIS ---
Provider - Provider Date of Admission: 02/06/17 12:53 Attending physician: Mehran Philip MD Time Spent in preparation of Discharge (in minutes): 15 Diagnosis - Discharge Diagnosis (1) DVT prophylaxis Status: Acute (2) Abdominal wall cellulitis Status: Acute Hospital Course - Lab Results Lab Results: Most Recent Lab Values WBC 7.0 K/uL (4.8-10.8) 02/08/17 06:00 RBC 4.43 Mil/uL (3.80-5.20) 02/08/17 06:00 Hgb 13.4 g/dL (12.0-16.0) 02/08/17 06:00 Hct 39.0 % (34.0-47.0) 02/08/17 06:00 MCV 88.0 fl (81.0-99.0) 02/08/17 06:00 MCH 30.3 pg (27.0-31.0) 02/08/17 06:00 MCHC 34.4 g/dL (33.0-37.0) 02/08/17 06:00 RDW 12.8 % (11.5-14.5) 02/08/17 06:00 Plt Count 353 K/uL (130-400) 02/08/17 06:00 MPV 8.7 fl (7.2-11.7) 02/08/17 06:00 Neut % (Auto) 70.1 % (50.0-75.0) 02/08/17 06:00 Lymph % (Auto) 23.2 % (20.0-40.0) 02/08/17 06:00 Meade % (Auto) 5.4 % (0.0-10.0) 02/08/17 06:00 Eos % (Auto) 0.8 % (0.0-4.0) 02/08/17 06:00 Baso % (Auto) 0.5 % (0.0-2.0) 02/08/17 06:00 Neut # 4.9 K/uL (1.8-7.0) 02/08/17 06:00 Lymph # 1.6 K/uL (1.0-4.3) 02/08/17 06:00 Meade # 0.4 K/uL (0.0-0.8) 02/08/17 06:00 Eos # 0.1 K/uL (0.0-0.7) 02/08/17 06:00 Baso # 0.0 K/uL (0.0-0.2) 02/08/17 06:00 PT 11.3 Seconds (9.8-13.1) 02/06/17 05:20 INR 1.0 (0.9-1.2) 02/06/17 05:20 APTT 32.9 Seconds (25.6-37.1) 02/06/17 05:20 pO2 20 mm/Hg (30-55) L 02/05/17 12:49 VBG pH 7.32 (7.32-7.43) 02/05/17 12:49 VBG pCO2 55 mmHg (40-60) 02/05/17 12:49 VBG HCO3 23.9 mmol/L 02/05/17 12:49 VBG Total CO2 30.0 mmol/L (22-28) H 02/05/17 12:49 VBG O2 Sat (Calc) 36.8 % (40-65) L 02/05/17 12:49 VBG Base Excess 1.1 mmol/L (0.0-2.0) 02/05/17 12:49 VBG Potassium 4.4 mmol/L (3.6-5.2) 02/05/17 12:49 A-a O2 Difference 61.0 mm/Hg 02/05/17 12:49 Sodium 136.0 mmol/L (132-148) 02/05/17 12:49 Chloride 105.0 mmol/L (98-107) 02/05/17 12:49 Glucose 79 mg/dL (65-105) 02/05/17 12:49 Lactate 1.1 mmol/L (0.7-2.1) 02/05/17 12:49 FiO2 21.0 % 02/05/17 12:49 Crit Value Called To Patric nieves 02/05/17 12:49 Crit Value Called By 15 02/05/17 12:49 Crit Value Read Back Y 02/05/17 12:49 Blood Gas Notified Time 1300 02/05/17 12:49 Sodium 139 mmol/l (132-148) 02/06/17 05:20 Potassium 3.8 MMOL/L (3.6-5.0) 02/06/17 05:20 Chloride 107 mmol/L (98-107) 02/06/17 05:20 Carbon Dioxide 26 mmol/L (22-30) 02/06/17 05:20 Anion Gap 11 (10-20) 02/06/17 05:20 BUN 10 mg/dl (7-17) 02/06/17 05:20 Creatinine 0.7 mg/dL (0.7-1.2) 02/06/17 05:20 Est GFR ( Amer) > 60 02/06/17 05:20 Est GFR (Non-Af Amer) > 60 02/06/17 05:20 Random Glucose 84 mg/dL (65-105) 02/06/17 05:20 Calcium 8.5 mg/dL (8.4-10.2) 02/06/17 05:20 Total Bilirubin 0.3 mg/dl (0.2-1.3) 02/06/17 05:20 AST 29 U/L (14-36) 02/06/17 05:20 ALT 35 U/L (9-52) 02/06/17 05:20 Alkaline Phosphatase 56 U/L (38-126) 02/06/17 05:20 Total Protein 6.1 G/DL (6.3-8.2) L 02/06/17 05:20 Albumin 3.3 g/dL (3.5-5.0) L D 02/06/17 05:20 Globulin 2.8 gm/dL (2.2-3.9) 02/06/17 05:20 Albumin/Globulin Ratio 1.2 (1.0-2.1) 02/06/17 05:20 Venous Blood Potassium 4.4 mmol/L (3.6-5.2) 02/05/17 12:49 Discharge Exam - Head Exam Head Exam: ATRAUMATIC, NORMAL INSPECTION, NORMOCEPHALIC Discharge Plan - Discharge Medications Prescriptions: Acidoph/L.bulg/Bif.b/S.thermop [Bacid Probiotic 5%-80%-10%-5%] 1 tab PO BID #14 tab Clindamycin [Cleocin] 300 mg PO Q6 #28 cap Ketorolac Tromethamine [Toradol] 10 mg PO Q6 PRN #20 tab PRN Reason: Pain, Mild (1-3) - Follow Up Plan Condition: FAIR Disposition: HOME/ ROUTINE Instructions: Cellulitis (DC), Debridement (DC) Additional Instructions: MAY SHOWER. DRESSING CHANGE DAILY. FOLLOW UP DR. LUGO IN ONE WEEK ( SURGERY). cleared by surgery for dc painc otnrolled f/u rmg in am, rted prnmeds, per med rec final dx-insect bite cellulitisx to abd wall s/p i/d Referrals: Mynor Lugo MD [Staff Provider] - Mehran Philip MD [Staff Provider] -
--- NOTE | 2017-03-12 16:05 | OP ---
PROCEDURE DATE: PREOPERATIVE DIAGNOSIS: Abdominal wall cellulitis and abscess. POSTOPERATIVE DIAGNOSIS: Abdominal wall cellulitis and abscess. PROCEDURE: Debridement of the abdominal wall cellulitis and drainage of the abscess. SURGEON: Ney Estevez MD AP OPERATOR: None. TYPE OF ANESTHESIA: General endotracheal intubation. ANESTHESIA ADMINISTERED BY: Mau Deluca MD IV FINDINGS: Crystalloids. ESTIMATED BLOOD LOSS: 10 mL. INTRAOPERATIVE FINDINGS: 10 mL of purulent material drained. SPECIMEN: None. DESCRIPTION OF PROCEDURE: Ms. Giraldo is a very pleasant 26-year-old female who came to the hospital complaining of the lower abdominal cellulitis and lots of pain and upon further investigation the patient was found to have some necrotic material right at the center of the cellulitis, as well as possibility of abscess. So the patient was taken to the operating room for above-stated procedure. All the risks and benefits of the procedure were explained to the patient and the patient will have a full understanding of all the risks and benefits involved. Informed consent was obtained and the patient was taken to the operating room for above-stated procedure. The patient was brought into the operating room and placed supine on the operating table. Bilateral Flowtron boots were applied to the patient's lower extremities. After successful induction of anesthesia and successful endotracheal intubation by the anesthesia team, the patient's abdomen was prepped with Betadine and draped in a standard surgical fashion. Prior to the beginning of the procedure, time-out was called in the room and everyone in the room were in agreement. Using 15-blade scalpel knife approximately 1 cm incision was made right on top of the fluctuant area and approximately 10 mL of purulent material was expressed. At that point in time, wound cultures were obtained and loculation was broken down with finger dissection. Subsequent to that the abscess cavity was irrigated and dried and packed with Iodoform packing. Also the necrotic material was debrided with 15-blade scalpel knife and passed off to the Canseco stent. At this point in time hemostasis was achieved with electrocautery. The patient's abdomen was washed and dried and a clean dressing of 4x4's and tape were applied to the incision site. The patient was successfully extubated by the anesthesia team, transferred to the stretcher and taken to the recovery room in a stable condition. At the end of the procedure all instrument counts, sponges, were correct. Ney Estevez MD [facility] # [id number]
== END 2017-02-08 13:47 | disposition home or self-care (01) | DRG 571 ==
LOC: H.ER 11:04 → H.ERHOLD 16:11 → H.MEDSURG1 17:46 → OBSVTOIN 02-06 12:53
PROVIDERS: ADMIT Family Medicine; ATTEND Family Medicine
PROC: 0J980ZX Drainage of Abdomen Subcutaneous Tissue and Fascia, Open Approach, Diagnostic (ICD-10-PCS; 2017-02-06)
PROC: 0JB80ZZ Excision of Abdomen Subcutaneous Tissue and Fascia, Open Approach (ICD-10-PCS; principal; 2017-02-06 10:30)
DX: S30.861A Insect bite (nonvenomous) of abdominal wall, initial encounter (principal); L03.311 Cellulitis of abdominal wall; B95.62 Methicillin resistant Staphylococcus aureus infection as the cause of diseases classified elsewhere; W57.XXXA Bitten or stung by nonvenomous insect and other nonvenomous arthropods, initial encounter; F17.210 Nicotine dependence, cigarettes, uncomplicated; Y92.9 Unspecified place or not applicable

== ENCOUNTER 2017-03-20 17:45 | Emergency (ER) | payer OTHER ==
[2017-03-20 17:45] VITALS: BMI 31.0
[2017-03-20 17:49] VITALS: BP 124/78; PULSE 89; RESP 18; TEMP 99.1; O2SAT 100
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
--- NOTE | 2017-03-21 07:23 | CT ---
PROCEDURE: CT Cervical Spine without contrast HISTORY: <c spine tenderness> COMPARISON: None available. TECHNIQUE: Axial computed tomography images were obtained of the cervical spine without the use of intravenous contrast. Coronal and sagittal reformatted images were created and reviewed. Radiation dose: Total exam DLP = 474 mGy-cm. This CT exam was performed using one or more of the following dose reduction techniques: Automated exposure control, adjustment of the mA and/or kV according to patient size, and/or use of iterative reconstruction technique. FINDINGS: VERTEBRAE: No fracture. Normal alignment. No destructive bony lesion. DISCS/SPINAL CANAL/NEURAL FORAMINA: No significant central canal or neural foraminal stenosis. Discs heights are grossly preserved. PARASPINAL SOFT TISSUES: Unremarkable. OTHER FINDINGS: None. IMPRESSION: Unremarkable CT of the cervical spine.
--- NOTE | 2017-03-21 07:28 | RAD ---
PROCEDURE: Radiographs of the Left Shoulder HISTORY: injury COMPARISON: No prior. FINDINGS: BONES: Normal. No fracture. JOINTS: Normal. Glenohumeral and acromioclavicular joints preserved. No osteoarthritis. SOFT TISSUES: Normal. OTHER FINDINGS: None. IMPRESSION: Normal radiographs of the left shoulder.
--- NOTE | 2017-03-21 07:28 | RAD ---
HISTORY: arm pain COMPARISON: No prior FINDINGS: BONES: Normal. No fracture. JOINTS: Normal. No osteoarthritis. SOFT TISSUE: Normal. OTHER FINDINGS: None . IMPRESSION: Normal Bone Xray.
--- NOTE | 2017-03-21 07:31 | RAD ---
PROCEDURE: Radiographs of the Chest and Right Ribs. HISTORY: injury COMPARISON: None available. TECHNIQUE: Frontal radiograph of the chest and multiple oblique radiographs of the right ribs were obtained. FINDINGS: RIGHT RIBS: No fracture or focal lesion visualized. LUNGS: Clear. PLEURA: No pneumothorax or pleural fluid. CARDIOVASCULAR: Normal sized heart. No pulmonary vascular congestion. OTHER FINDINGS: None. IMPRESSION: Unremarkable radiographs of the chest and right ribs. No right rib fracture.
== END 2017-03-20 21:05 | disposition home or self-care (01) ==
LOC: H.ER 17:45
DX: T14.90 Injury, unspecified (principal); V43.52XA Car driver injured in collision with other type car in traffic accident, initial encounter; M79.602 Pain in left arm